=== PATIENT | male | born 1970 | race Caucasian/White ===

== ENCOUNTER 2022-08-15 10:03 | Outpatient (CLI) | payer BC, SELFPAY ==
--- NOTE | ~2022-08-15 | XR_ITS ---
EXAM: XR shoulder RT min 2V DATE: 08/15/2022 10:18 HISTORY: M25.511 - Pain in right shoulder, NKI, PAIN X 6 WKS . COMPARISON: None available. FINDINGS: Normal mineralization. No fracture or dislocation. No lytic or blastic lesion. Mild AC padmini nt hypertrophy. Enthesopathy at the acromion. No erosion or periosteal change. Soft tissues within no rmal limits. IMPRESSION: No acute osseous finding in the right shoulder. Reviewed, dictated and finalized at location K. [employer]ESS [employer]PER[employer]OR
== END 2022-08-15 10:04 | disposition home or self-care (01) ==
LOC: ANHIMG 10:05
PROVIDERS: PCP Family Medicine; Visit Provider Nurse Practitioner Family
DX: M25.511 Pain in right shoulder (principal)
CPT/HCPCS: 73030